=== PATIENT | male | born 1975 | race Caucasian/White ===

== ENCOUNTER → 2019-08-13 | Outpatient (CLI) | payer OTHER ==
[~2019-08-13] MED LIST: ATIVAN1 MG PO; CYMBALTA30 MG PO; FISH OIL 1,0001 EAC5 PO; GEMFIBROZIL 60600 MG PO; OMEPRAZOLE 20 M20 M1 PO; OMEPRAZOLE40 MG PO; VENLAFAXIN75 MG/1 T2 PO; VICODIN ES TAB1 EACH; VITAMIN D400 UNI1 PO
== END ==
LOC: M.ULTRA 08:51
DX: N28.9 Disorder of kidney and ureter, unspecified (principal)

== ENCOUNTER → 2020-04-05 | Outpatient (CLI) | payer OTHER | LOC: M.CT 07:48 | PROVIDERS: ATTEND Family Medicine | DX: Z13.6 Encounter for screening for cardiovascular disorders (principal); I25.10 Atherosclerotic heart disease of native coronary artery without angina pectoris ==

== ENCOUNTER → 2020-06-08 | Outpatient (CLI) | payer OTHER ==
[~2020-06-08] MED LIST changes: +ASA81BEC PO; +DEPO-TESTO200 MG/1 M IM; +IBUPROFEN200 M1 PO; +LEVO-T25 MCG PO; +LIPITOR10 MG PO; +VITAMIN D310 MC2 PO; +ZESTRIL10 MG PO
--- NOTE | 2020-06-21 12:05 | PF ---
[place] [address] PULMONARY FUNCTION REPORT Name: RODNEY HANCOCK PATSY Room: [facility].#: [id number] Admission: 06/08/20 Attend Phys: Bebeto Gallardo MD Discharge: Date of : 75 Report #: [id number] THIS REPORT FOR: cc: Zachary Davis Vincent R. DO Pervez, Adeel MD ~ DATE OF SERVICE: 06/08/2020 The FEV1/FVC ratio is normal at 87% with an FVC normal at 81% and FEV1 also normal at 90%. The [id number] is normal at 101%. The total lung capacity is mildly decreased to 73%. The residual volume is decreased to 34%. The DLCO as adjusted for hemoglobin is decreased to 41%. The spirometry was also repeated after the administration of a bronchodilator, there is no significant change in spirometry after the administration of a bronchodilator. The patient's FEV1 is noted to be 3.69 liters, this does not increase after the administration of a bronchodilator. IMPRESSION: 1. Mild restriction with total lung capacity decreased to 73%. 2. DLCO as adjusted for hemoglobin decreased to 41%. <ELECTRONICALLY SIGNED> By: Bebeto Gallardo MD 06/21/20 1205 1311 2033Ajeffery Gallardo MD /torsten
== END ==
LOC: M.PUL 10:14
PROVIDERS: ATTEND Internal Medicine Critical Care Medicine
DX: R06.02 Shortness of breath (principal); Z87.891 Personal history of nicotine dependence

== ENCOUNTER → 2020-06-08 | Outpatient (CLI) | payer OTHER ==
--- NOTE | 2020-06-22 15:05 | SLEEP ---
[address] [address] SLEEP STUDY REPORT Name: RODNEY HANCOCK [id number] Admission: 06/08/20 Attend Phys: Bebeto Gallardo MD Discharge: Date of : 75 Report #: [id number] THIS REPORT FOR: cc: Zachary Davis Vincent R. DO Pervez, Adeel MD ~ This study has been reviewed in its entirety by a board certified sleep specialist DATE OF SERVICE: 06/08/2020 SLEEP STUDY INDICATION FOR SLEEP STUDY: Obstructive sleep apnea with persistent daytime sleepiness. INTERPRETATION: Total duration of the study is 448 minutes. During this time duration, the patient was asleep for 370 minutes with an overall sleep efficiency of 83%. Sleep onset initially occurred 9 minutes after lying down in bed and REM onset was 143 minutes after sleep onset. N1 sleep duration was 6%, N2 duration was 50%, N3 duration was 13%, REM duration was 31%. Mean heart rate during the sleep study was 74. Periodic limb movement index was normal at 6.5, arousal index is mildly elevated to 30. This is a positive airway pressure titration. Review of the positive airway pressure titration indicates the patient was initially titrated on a CPAP. Various CPAP pressures from 8-15 cm of water were used. The patient, however, continued to have multiple hypopneas. Apnea-hypopnea index remained elevated and multiple desaturations continued to occur as well. Therefore, the patient was switched over to BiPAP, was titrated beginning with a BiPAP pressure of 19/15, gradually increasing it to 23/16. The patient does have a favorable response to BiPAP therapy; however, there are some hypopneas continuing to occur. Full correction of the patient's sleep disordered respirations is not noted. There is no obvious improvement in the patient's sleep-disordered respirations as the BiPAP pressure is increased from 19/15-23/16. IMPRESSION: Obstructive sleep apnea. The patient is noted to have failed CPAP. The patient has a favorable response to BiPAP therapy. Further data, however, may be needed to determine the patient's optimal BiPAP pressures. RECOMMENDATIONS: I would go ahead and placing the patient on a BiPAP with an I of 16 and an E of 11, with heated humidity and mask [place] [address] SLEEP STUDY REPORT Name: RODNEY HANCOCK [id number] Admission: 06/08/20 Attend Phys: Bebeto Gallardo MD Discharge: Date of : 75 Report #: [id number] asleep and a C-Flex of 3 during the sleep study and F and P Simplus full face mask was used. Note that these pressures are lower than used during this sleep study. We will subsequently follow response. If the patient is not adequately controlled with these empiric BiPAP settings, then I will be inclined to bring the patient back to the Sleep Lab and perform a repeat sleep study for a repeat BiPAP titration. Recommend some weight loss. Recommend avoiding driving or other activities, requiring vigilance if drowsy. This entire sleep study was reviewed by board certified sleep physician. <ELECTRONICALLY SIGNED> By: Bebeto Gallardo MD 06/22/20 1505 1411 1431Ajeffery Gallardo MD /nt
== END ==
LOC: M.SLEEPLAB 20:29
PROVIDERS: ATTEND Internal Medicine Critical Care Medicine
DX: G47.33 Obstructive sleep apnea (adult) (pediatric) (principal); Z87.891 Personal history of nicotine dependence

== ENCOUNTER → 2021-05-15 | Outpatient (CLI) | payer OTHER | LOC: M.CT 13:12 | PROVIDERS: ATTEND Family Medicine | DX: M54.50 Low back pain, unspecified (principal); N13.8 Other obstructive and reflux uropathy; M54.9 Dorsalgia, unspecified; Z90.49 Acquired absence of other specified parts of digestive tract ==